=== PATIENT | female | born 1990 | race Caucasian/White ===

== ENCOUNTER 2020-03-13 11:09 | Emergency (ER) | payer OTHER ==
[~2020-03-13] VITALS: Ht 152.4 cm; Wt 68.0 kg
[2020-03-13 11:17] VITALS: Ht 152.4 cm; Wt 68.0 kg
[2020-03-13 13:02] LABS: UA SPECIFIC GRAVITY >=1.030 (1.005-1.035); microscopic required? YES; urine erythrocyte 1+ (NEGATIVE)
[2020-03-13 14:05] VITALS: BP 116/77
== END 2020-03-13 14:05 | disposition home or self-care (01) ==
LOC: ED 11:09
PROVIDERS: Emergency Medicine
DX: L27.0 Generalized skin eruption due to drugs and medicaments taken internally (principal); R50.9 Fever, unspecified; Z20.828 Contact with and (suspected) exposure to other viral communicable diseases
CPT/HCPCS: J1200; J2930; J3490; J7030; Q0092; U0003-CS